=== PATIENT | female | born 1995 | race Caucasian/White ===

== ENCOUNTER 2018-11-15 11:45 | Emergency (ER) | payer BC ==
[2018-11-15 12:01] VITALS: BP 138/91
--- NOTE | 2018-11-15 12:12 | UC ---
Throat Pain/Nasal Maynor HPI - HPI Summary HPI Summary: sore throat x 5 days , nasal congestion , dry cough , pnd no fever, + chills upset stomach , nausea , no vomiting no diarrhea - History of Current Complaint Chief Complaint: UCGeneralIllness Stated Complaint: NAUSEA,ST,EXHAUSTION,CONGESTION Time Seen by Provider: 11/15/18 12:01 Hx Obtained From: Patient Hx Last Menstrual Period: 11/11/18 Onset/Duration: Gradual Onset, Lasting Days - 5, Still Present Severity: Moderate Pain Intensity: 0 Cough: Nonproductive Associated Signs & Symptoms: Positive: Nasal Discharge. Negative: Dysphagia, FB Sensation, Drooling, Wheezing, Hoarseness, Sinus Discomfort, Fever, Vomiting , Rash - Allergies/Home Medications Allergies/Adverse Reactions: Allergies Allergy/AdvReac Type Severity Reaction Status Date / Time Sulfa (Sulfonamide Allergy Intermediate Hives Verified 11/15/18 11:55 Antibiotics) Home Medications: Home Medications Phendimetrazine Tartrate 35 mg PO TID 11/15/18 [History Confirmed 11/15/18] PMH/Surg Hx/FS Hx/Imm Hx Previously Healthy: Yes - Surgical History Surgical History: Yes Surgery Procedure, Year, and Place: TONSILLECTOMY, Laser eye surgery - bi-lat - Family History Known Family History: Negative: Diabetes - Social History Alcohol Use: Occasionally Substance Use Type: Marijuana Substance Use Comment - Amount & Last Used: occasional Smoking Status (MU): Never Smoked Tobacco Review of Systems All Other Systems Reviewed And Are Negative: Yes Constitutional: Positive: Chills, Fatigue Skin: Positive: Negative Eyes: Positive: Negative ENT: Positive: Sore Throat, Nasal Discharge Respiratory: Positive: Cough Cardiovascular: Positive: Negative Gastrointestinal: Positive: Abdominal Pain, Nausea Genitourinary: Positive: Negative Is Patient Immunocompromised?: No Physical Exam Triage Information Reviewed: Yes Appearance: Well-Appearing, No Pain Distress, Obese Vital Signs: Initial Vital Signs Temp 96.3 F 11/15/18 11:56 Pulse 80 11/15/18 11:56 Resp 20 11/15/18 11:56 BP 138/91 11/15/18 11:56 Pulse Ox 97 11/15/18 11:56 Vital Signs Reviewed: Yes Eyes: Positive: Conjunctiva Clear ENT: Positive: Normal ENT inspection, Hearing grossly normal, Pharynx normal, Nasal congestion. Negative: Pharyngeal erythema Neck: Positive: Supple, Nontender, No Lymphadenopathy Respiratory: Positive: Chest non-tender, Lungs clear, Normal breath sounds Cardiovascular: Positive: RRR, No Murmur, Pulses Normal Abdomen Description: Positive: Nontender, Soft. Negative: CVA Tenderness (R), CVA Tenderness (L), Distended, Guarding Bowel Sounds: Positive: Present Skin Exam: Normal Throat Pain/Nasal Course/Dx - Differential Dx/Diagnosis Provider Diagnosis: Viral illness Discharge - Sign-Out/Discharge Documenting (check all that apply): Patient Departure All imaging exams completed and their final reports reviewed: No Studies - Discharge Plan Condition: Stable Disposition: HOME Patient Education Materials: Viral Syndrome (ED) Referrals: No Primary Care Phys,NOPCP [Primary Care Provider] - If Needed - Billing Disposition and Condition Condition: STABLE Disposition: Home
== END 2018-11-15 12:11 | disposition home or self-care (01) ==
LOC: UCCORT 11:45
DX: B34.9 Viral infection, unspecified (principal); J02.9 Acute pharyngitis, unspecified; R09.81 Nasal congestion; R05 Cough; R09.82 Postnasal drip; K30 Functional dyspepsia; R11.0 Nausea; R09.89 Other specified symptoms and signs involving the circulatory and respiratory systems; Z88.2 Allergy status to sulfonamides
CPT/HCPCS: 99211; G0463

== ENCOUNTER 2018-12-17 20:58 | Emergency (ER) | payer BC ==
[2018-12-17 21:16] VITALS: BP 157/94
[2018-12-17] MEDS ORDERED: DOXYcycline CAP(*) 100 MG PO ONE (21:25)
--- NOTE | 2018-12-17 21:33 | UC ---
Skin Complaint HPI - HPI Summary HPI Summary: Patient got a tattoo to her left forearm last week and she developed 2 areas of redness and tenderness one on her wrist and one on her upper left arm. She denies any fever or chills. She has a history of 1 abscess in the past however she is unsure about MRSA. - History of Current Complaint Chief Complaint: UCSkin Time Seen by Provider: 12/17/18 21:13 Stated Complaint: SKIN ISSUE LEFT FOREARM Hx Obtained From: Patient Hx Last Menstrual Period: 12/09/18 Onset/Duration: Gradual Onset Skin Exposure Onset/Duration: Days Ago, Worse Since: - Worse since getting a tattoo on her left forearm. Timing: Constant Onset Severity: Mild Current Severity: Moderate Pain Intensity: 5 Location: Other - Left wrist and left upper arm Aggravating Factor(s): Nothing Alleviating Factor(s): Nothing - Allergy/Home Medications Allergies/Adverse Reactions: Allergies Allergy/AdvReac Type Severity Reaction Status Date / Time Sulfa (Sulfonamide Allergy Intermediate Hives Verified 12/17/18 21:16 Antibiotics) PMH/Surg Hx/FS Hx/Imm Hx Previously Healthy: Yes - 1 abscess in the past. - Surgical History Surgical History: Yes Surgery Procedure, Year, and Place: TONSILLECTOMY, Laser eye surgery - bi-lat - Family History Known Family History: Negative: Diabetes - Social History Alcohol Use: Occasionally Substance Use Type: Marijuana Substance Use Comment - Amount & Last Used: occasional Smoking Status (MU): Never Smoked Tobacco Review of Systems All Other Systems Reviewed And Are Negative: Yes Skin: Positive: Other - 1 area of redness on her left wrist and one on her left upper arm. Patient states that after the tattoo she reacted in saran wrap and then she went to the gym and worked out. Motor: Positive: Negative Neurovascular: Positive: Negative Musculoskeletal: Positive: Negative Neurological: Positive: Negative Psychological: Positive: Negative Is Patient Immunocompromised?: No Physical Exam Triage Information Reviewed: Yes Appearance: Well-Appearing, No Pain Distress, Well-Nourished Vital Signs: Initial Vital Signs Temp 97.8 F 12/17/18 21:12 Pulse 80 12/17/18 21:12 Resp 16 12/17/18 21:12 BP 157/94 12/17/18 21:12 Pulse Ox 100 12/17/18 21:12 Vital Signs Reviewed: Yes Respiratory Exam: Normal Cardiovascular Exam: Normal Musculoskeletal Exam: Normal Neurological Exam: Normal Psychological Exam: Normal Skin: Positive: Other - One small area of cellulitis left wrist measuring approximately 1.0 cm in diameter with mild tenderness on palpation, no streaking. Smaller area of cellulitis left upper arm with tenderness on palpation and warm to touch. No streaking. Course/Dx - Differential Diagnoses - Skin Complaint Differential Diagnoses: Cellulitis - Diagnoses Provider Diagnosis: Cellulitis of arm, left Discharge - Sign-Out/Discharge Documenting (check all that apply): Patient Departure All imaging exams completed and their final reports reviewed: No Studies - Discharge Plan Condition: Fair Disposition: HOME Prescriptions: DOXYcycline CAP(*) [DOXYcycline 100MG CAP(*)] 100 mg PO BID 10 Days #19 cap Patient Education Materials: Cellulitis (DC) Referrals: No Primary Care Phys,NOPCP [Primary Care Provider] - Additional Instructions: Please call [facility] at [phone] to get help establishing care with a primary care provider. Do not eat any dairy products, antacids are multivitamins 2 hours before taking doxycycline and 2 hours after taking doxycycline however you are to take with food. Or moist compresses to the red areas 4-6 times a day for 20 minutes each time. Definite follow-up with your primary care provider if no improvement by this Monday. If the area worsens in you develop fever, chills, red streaks up her arm, your to go to the emergency room for further treatment. - Billing Disposition and Condition Condition: FAIR Disposition: Home
== END 2018-12-17 21:35 | disposition home or self-care (01) ==
LOC: UCCORT 20:58
DX: L03.114 Cellulitis of left upper limb (principal); Z88.2 Allergy status to sulfonamides
CPT/HCPCS: 99212; A9270-GY; G0463